=== PATIENT | female | born 1975 | race American Indian/Alaskan Native ===

== ENCOUNTER 2018-01-19 00:09 | Emergency (ER) | payer MEDICAID, SELFPAY ==
[2018-01-19 00:10] VITALS: PULSE 133; RESP 6; O2SAT 91
[2018-01-19 00:11] VITALS: BP 132/103; PULSE 97; RESP 21; O2SAT 100
[2018-01-19] MEDS: NALOXONE 1 MG/ML SYRINGE IV (00:15)
--- NOTE | 2018-01-19 00:15 | PC.NURSE ---
pt was visiting spouse in ED, family member called for help, pt was being helped to the ground, witness reports fainted, unresponsive to painful stimuli, MD present, initiated bag assisted ventilation, narcan nasal 2mg given at time of triage, pt regained resp effort after <2min, placed on seat nailer, additional 0.5mg iv narcan given per md order, family at bedside, reports pt snorted oxy 30 milligram, unsure of time
--- NOTE | 2018-01-19 00:22 | ED_ITS ---
HPI - Overdose General Chief Complaint: Toxicology Problem Stated Complaint: Overdose Time Seen by Provider: 01/19/18 00:16 Source: family History of Present Illness HPI Narrative: Patient in the emergency department with her for opiate overdose. The she passed out in the chair she did strike her head is all on the floor. History of opiate abuse. complaint: accidental overdose Related Data Previous Rx's Medication Instructions Recorded ibuprofen 800 mg PO TID PRN #20 tab 01/19/18 Review of Systems Review of Systems Unable to obtain [facility] Medical History Opiate abuse, continuous (Acute) Exam Initial Vital Signs Initial Vital Signs: Vital Signs Pulse Rate 97 H 01/19/18 00:11 Respiratory Rate 21 01/19/18 00:11 Blood Pressure 132/103 H 01/19/18 00:11 Pulse Oximetry 100 01/19/18 00:11 Const General: acute distress and lethargic HENMT Head: normal to inspection, normocephalic and abrasion Eyes Pupils: pinpoint Neck Neck: normal visual inspection Chest Chest: normal inspection of the chest and normal palpation of entire chest wall Resp Effort & Inspection: decreased respiratory effort Auscultation: clear to auscultation bilaterally, no crackles and no egophony Cardio Rate: regular rate Rhythm: regular rhythm Heart Sounds: S1 normal and S2 normal GI Inspection: normal to inspection Palpation: soft and No tender Skin General: No erythema and No fluctuance Other: No track canales Neuro General: moves all extremities Course Orders Ordered: ED Orders 01/19/18 EKG-12 Lead Routine 01/19/18 00:10 Acetaminophen Stat Complete Blood Count AUTO DIFF Stat Comprehensive Metabolic Panel Stat Ethanol (ETOH) Stat Hepatic (Liver) Panel Stat Test Serum,Qual Stat Salicylate Stat 01/19/18 00:26 CT head/brain wo con Stat Discontinued Medications Sodium Chloride (Normal Saline 0.9%) 1,000 mls @ 150 mls/hr IV CONT JANA Last Admin: 01/19/18 00:28 Dose: 150 mls/hr Naloxone HCl (Narcan) 1 mg IV PRN PRN PRN Reason: Opiate Reversal Last Admin: 01/19/18 00:15 Dose: 0.5 mg Ondansetron HCl (Zofran) 4 mg IV NOW ONE Stop: 01/19/18 00:17 Vital Signs - 8 hr 01/19/18 00:11 01/19/18 02:38 Temperature 98.0 F Pulse Rate 97 H 72 Respiratory Rate 21 18 Blood Pressure 132/103 H 141/91 H Pulse Oximetry 100 100 MDM - Overdose Lab Data Attestation: I reviewed the patient's lab results. Result diagrams: 01/19/18 00:10 01/19/18 00:10 Lab Results 01/19/18 01/19/18 01/19/18 Range/Units 00:10 00:10 00:10 WBC 12.0 H (4.5-11.0) X10^3/uL RBC 4.35 (4.0-5.2) X10^6/uL Hgb 7.2 L (12.0-16.0) g/dL Hct 25.0 L (36-46) % MCV 57.5 L (80-100) fL MCH 16.6 L (26-34) PG MCHC 28.9 L (30-36) % RDW 19.2 H (11.6-14.8) % Plt Count 519 H (150-400) X10^3/uL Neut % (Auto) 73.9 (50-75) % Lymph % (Auto) 21.8 L (25-40) % [place] % (Auto) 3.7 (3-14) % Eos % (Auto) 0.1 L (2-4) % Baso % (Auto) 0.5 (0-2) % Neut # (Auto) 8900 H (6710-4648) /uL RBC Morphology Not Reportable Hypochromasia 2+ H Poikilocytosis 1+ H Anisocytosis 2+ H Microcytosis 2+ H Ovalocytes 2+ H Sodium 145 (137-145) mmol/L Potassium 3.8 (3.4-5.1) mmol/L Chloride 104 (98-107) mmol/L Carbon Dioxide 27 (22-32) mmol/L BUN 8 (7-17) mg/dL Creatinine 0.70 (0.52-1.04) mg/dL Estimated GFR > 60.0 (>60) mL/min BUN/Creatinine Ratio 11.4 (6-22) Glucose 172 H (70-100) mg/dL Calcium 8.5 (8.4-10.2) mg/dL Total Bilirubin 0.4 (0.2-1.3) mg/dL Conjugated Bilirubin 0.0 (0.0-0.3) md/dL Unconjugated Bilirubin 0.1 (0.0-1.1) mg/dL AST 30 (14-36) IU/L ALT 18 (9-52) IU/L Alkaline Phosphatase 64 (38-126) U/L Total Protein 8.2 (6.3-8.2) g/dL Albumin 4.8 (3.5-5.0) g/dL Globulin 3.4 (1.7-4.1) g/dL Albumin/Globulin Ratio 1.4 (1.0-2.8) Serum , Qual Negative (Negative) Salicylates < 1.0 (<20) mg/dL Acetaminophen < 10 L (10-30) ug/mL Ethyl Alcohol < 10 mg/dL Imaging Data CT scan - head: Radiologist's impression: salesforce developer report: No acute intracranial process identified. ECG Data Attestation: I personally reviewed and interpreted this ECG as follows: Prior ECG tracings: not available for review Interpretation: Normal sinus rhythm rate 92 IN interval 140 to QRS 79 QTC 441 no priors to compare no acute ST changes MDM Narrative Medical decision making narrative: The patient initially given 0.2 mg nasally and 1 mg IV. She became awake and alert. She is monitored for 2 hr. Both she and her now admit to snorting oxycodone. They think it may be laced with fentanyl. She is going into treatment tomorrow. Discharge Plan Departure Patient Disposition: Home Clinical Impression: Opioid overdose Discharge Date/Time: 01/19/18 02:41 Interventions: ED Discharge Assessment Last Done: 01/19/18 02:38 Instructions: DI for Opioid Addiction, DI for Prescription Opioid Use Activity Restrictions/Additional Instructions: *You have been diagnosed with overdose *What to do: Stop using drugs *Continue to take medications as directed *Follow up with your primary care provider in 2-3 days *Return to ER if you should have any new, worsening or concerning symptoms Prescriptions: New ibuprofen 800 mg tablet 800 mg PO TID PRN (Reason: pain) Qty: 20 RF: 0
--- NOTE | 2018-01-19 00:26 | DI.CT.S_ITS ---
PROCEDURE: CT HEAD/BRAIN WO CON INDICATIONS: hit head OD TECHNIQUE: Noncontrast 4.5 mm thick angled axial sections acquired from the foramen magnum to the vertex, with coronal and sagittal reformats. For radiation dose reduction, the following was used: automated exposure control, adjustment of mA and/or kV according to patient size. COMPARISON: None. FINDINGS: Image quality: Excellent. CSF spaces: Basal cisterns are patent. No extra-axial fluid collections. Ventricles are normal in size and shape. Brain: No midline shift. No intracranial masses or hemorrhage. Keyes-white matter interface is normal. Skull and face: Calvarium and visualized facial bones are intact, without suspicious lesions. Left frontal scalp hematoma/swelling. Sinuses: Visualized sinuses and mastoids are clear. IMPRESSION: Left frontal scalp swelling. No acute intracranial process. Dictated by: Abel Daugherty M.D. on 01/19/2018 at 7:03 Approved by: Abel Daugherty M.D. on 01/19/2018 at 7:05
[2018-01-19] MEDS: SODIUM CHLORIDE 0.9% 1,000 ML 150 ML IV (00:28)
--- NOTE | 2018-01-19 00:32 | PC.NURSE ---
Family member asking for ice pack for pt's head. Lump noted to left forehead. Dr Torres notified, CT head ordered.
[2018-01-19 00:34] LABS: Acetaminophen < 10 ug/mL (10-30); Alanine Aminotransferase 18 IU/L (9-52); Albumin 4.8 g/dL (3.5-5.0); Albumin Globulin Ratio 1.4 (1.0-2.8); Alkaline Phosphatase 64 U/L (38-126); Aspartate Aminotransferase 30 IU/L (14-36); BUN Creatinine Ratio 11.4 (6-22); Basophils Percent Auto 0.5 % (0-2); Bilirubin Total 0.4 mg/dL (0.2-1.3); Bilirubin Unconjugated 0.1 mg/dL (0.0-1.1); Blood Urea Nitrogen 8 mg/dL (7-17); Calcium 8.5 mg/dL (8.4-10.2); Carbon Dioxide 27 mmol/L (22-32); Chloride 104 mmol/L (98-107); Eosinophils Percent Auto 0.1 % (2-4); Estimated Glomerular Filt Rate > 60.0 mL/min (>60); Ethanol (ETOH) < 10 mg/dL; Globulin 3.4 g/dL (1.7-4.1); Glucose 172 mg/dL (70-100); HEMOLYSIS < 15 (0-50); Hemoglobin 7.2 g/dL (12.0-16.0); Lymphocytes Percent Auto 21.8 % (25-40); Mean Corpuscular HGB Conc 28.9 % (30-36); Mean Corpuscular Hemoglobin 16.6 PG (26-34); Mean Corpuscular Volume 57.5 fL (80-100); Monocytes Percent Auto 3.7 % (3-14); Neutrophils Absolute Auto 8900 /uL (3000-5900); Neutrophils Percent Auto 73.9 % (50-75); Platelet Count 519 X10^3/uL (150-400); Potassium 3.8 mmol/L (3.4-5.1); Red Blood Cell Count 4.35 X10^6/uL (4.0-5.2); Red Cell Distribution Width 19.2 % (11.6-14.8); Sodium 145 mmol/L (137-145); Total Protein 8.2 g/dL (6.3-8.2)
[2018-01-19 00:37] LABS: Add Manual Diff / Slide Review SLIDE REVIEW; Salicylate < 1.0 mg/dL (<20)
[2018-01-19 00:42] LABS: Pregnancy Test Serum,Qual Negative (Negative)
[2018-01-19 01:04] LABS: Anisocytosis 2+; Hypochromasia 2+; Microcytosis 2+; Ovalocytes 2+; Poikilocytosis 1+
[2018-01-19 02:38] VITALS: BP 141/91; PULSE 72; RESP 18; TEMP 36.7; O2SAT 100
--- NOTE | 2018-01-24 19:36 | PC.NURSE ---
IV stop time 7800
== END 2018-01-19 02:41 | disposition home or self-care (01) ==
PROVIDERS: Emergency Provider Emergency Medicine
DX: T40.601A Poisoning by unspecified narcotics, accidental (unintentional), initial encounter (principal)
CPT/HCPCS: 36415; 70450; 80053; 80076; 80320; 80329; 84703; 85025; 93005; 96361; 96374; 99282; 99291; G0480; J2310

== ENCOUNTER 2019-07-28 02:18 | Emergency (ER) | payer MEDICAID, SELFPAY ==
[2019-07-28] VITALS (8 sets, daily range): BP systolic 131–166; BP diastolic 66–89; PULSE 74–99; RESP 14–24; TEMP 36.1; O2SAT 100; BMI 26.6
--- NOTE | 2019-07-28 02:29 | ED.OVERDOSE ---
HPI - Overdose General Chief Complaint: Toxicology Problem Stated Complaint: Overdose Time Seen by Provider: 07/28/19 02:24 Source: patient and EMS Mode of arrival: EMS Limitations: no limitations History of Present Illness HPI Narrative: This is a 43-year-old female brought in for overdose. Per EMS patient had an overdose along with her spouse both within their home on Percocet. It is unclear exact Abby with a took the Percocet or how much either individual take. Neither is very forthcoming. When asked specifically if this was a actual prescription or possibly off the street they are also not forthcoming. Per EMS they were told that the individuals would take 1 tablet wait 20 minutes, did notice any change that would take an additional tablet with the has been taking 1 tablet and the patient taking 1/2 tablet on each case. The patient states that it was dark when they started. That they did receive Narcan, she received 20 mg from Law enforcement intranasally about 20 minutes prior to arrival. Patient has been awake she is a little sleepy but responds to any verbal stimuli. She denies any pain, she does feel cold, she denies any nausea vomiting, no chest pain or shortness of breath and denies any other symptoms. Patient denies any intent to harm herself or others and states that this was recreational. She denies any other medical issues. Denies any regular medications. Denies any prior surgeries or allergies. She does smoke tobacco, occasional alcohol. She denies any other ingestion today and denies any alcohol or other illicit substances. Related Data Previous Rx's Medication Instructions Recorded ibuprofen 800 mg PO TID PRN #20 tab 01/19/18 Allergies Allergy/AdvReac Type Severity Reaction Status Date / Time No Known Drug Allergies Allergy Verified 07/28/19 02:41 Review of Systems Review of Systems ROS Unobtainable: All systems reviewed & are unremarkable except as noted in HPI and below Patient History Medical History Opiate abuse, continuous (Acute) Social History (Updated 07/28/19 @ 02:32 by Merlyn Randolph DO) Smoking Status: Current every day smoker Substance Use Type: painkillers Exam Narrative Exam Narrative: GEN: well nourished, well appearing thin female, alert and oriented x 3, patient appears to be in mild distress. Patient is mildly shaky. HEENT: Atraumatic, pupils are equal round reactive to light, extraocular movements are intact, nares are clear. throat is clear without any exudates, erythema, tonsillar enlargement or uvular deviation HEART: Regular rate and rhythm without murmur, clicks, rubs. LUNGS:Lungs clear to auscultation, no wheezes, rales, crackles, chest moves symmetrically ABD:bowel sounds normal, soft, non-tender, no guarding, rebound, rigidity, no masses noted, no hepatosplenomegaly :No CVA tenderness. MSCL: Non-tender, no muscle atrophy, muscles strength 5/5 upper and lower extremities, full range of motion NEURO:CN 2-12 intact, sensation normal. SKIN: No rash, erythema or other skin changes. Initial Vital Signs Initial Vital Signs: Vital Signs Pulse Rate 84 07/28/19 02:20 Respiratory Rate 14 07/28/19 02:20 Blood Pressure 153/82 H 07/28/19 02:20 Pulse Oximetry 100 07/28/19 02:20 Scores GCS Wood coma scale eye opening: Spontaneous Vonda coma scale verbal response: Orientated Vonda coma scale motor response: Obey commands Wood coma scale total score: 15 Course Orders Ordered: ED Orders 07/28/19 EKG-12 Lead Stat 07/28/19 02:22 Acetaminophen Stat Complete Blood Count AUTO DIFF Stat Comprehensive Metabolic Panel Stat Ethanol (ETOH) Stat Hepatic (Liver) Panel Stat Test Serum,Qual Stat Salicylate Stat 07/28/19 03:30 Urine Drug Screen, Rapid Stat Discontinued Medications Sodium Chloride (Normal Saline 0.9%) 1,000 mls @ 1,000 mls/hr IV BOLUS ONE Stop: 07/28/19 03:24 Last Infusion: 07/28/19 04:27 Dose: 0 mls/hr Documented by: Admin: 07/28/19 02:40 Dose: 1,000 mls/hr Documented by: CTRNESTOR Ondansetron HCl (Zofran) 4 mg IV NOW ONE Stop: 07/28/19 02:26 Last Admin: 07/28/19 02:47 Dose: 4 mg Documented by: CTRNESTOR Vital Signs Vital signs: Vital Signs - 8 hr 07/28/19 02:20 07/28/19 02:41 07/28/19 02:47 Temperature 97.0 F L Pulse Rate 84 99 H 77 Respiratory Rate 14 14 24 Blood Pressure 146/89 H Blood Pressure [Left Arm] 153/82 H 149/79 H Pulse Oximetry 100 100 100 07/28/19 03:04 07/28/19 03:20 07/28/19 03:38 Temperature Pulse Rate 79 81 87 Respiratory Rate 17 18 18 Blood Pressure Blood Pressure [Left Arm] 148/87 H 148/87 H 166/83 H Pulse Oximetry 100 100 100 07/28/19 04:28 07/28/19 05:49 Temperature Pulse Rate 84 74 Respiratory Rate 18 18 Blood Pressure Blood Pressure [Left Arm] 161/79 H 131/66 Pulse Oximetry 100 100 MDM - Overdose Lab Data Attestation: I reviewed the patient's lab results. Result diagrams: 07/28/19 02:22 07/28/19 02:22 Labs: Lab Results 07/28/19 07/28/19 07/28/19 Range/Units 02:22 02:22 02:22 WBC 8.1 (4.5-11.0) X10^3/uL RBC 4.59 (4.0-5.2) X10^6/uL Hgb 7.9 L (12.0-16.0) g/dL Hct 26.6 L (36-46) % MCV 57.9 L (80-100) fL MCH 17.1 L (26-34) PG MCHC 29.6 L (30-36) % RDW 17.9 H (11.6-14.8) % Plt Count 457 H (150-400) X10^3/uL Neut % (Auto) 74.9 (50-75) % Lymph % (Auto) 18.6 L (25-40) % Mineral % (Auto) 5.0 (3-14) % Eos % (Auto) 0.8 L (2-4) % Baso % (Auto) 0.7 (0-2) % Neut # (Auto) 6100 (7709-5722) /uL Lymph # (Auto) 1500 (4839-8349) /uL Mineral # (Auto) 400 (0-900) /uL Eos # (Auto) 100 (0-450) /uL Baso # (Auto) 100 (0-100) /uL RBC Morphology See below Hypochromasia 1+ H Anisocytosis 2+ H Microcytosis 3+ H Ovalocytes 1+ H Schistocytes 1+ H Sodium 139 (137-145) mmol/L Potassium 3.5 (3.4-5.1) mmol/L Chloride 106 (98-107) mmol/L Carbon Dioxide 25 (22-32) mmol/L BUN 10 (7-17) mg/dL Creatinine 0.75 (0.52-1.04) mg/dL Estimated GFR > 60.0 (>60) mL/min BUN/Creatinine Ratio 13.3 (6-22) Glucose 133 H (70-100) mg/dL Calcium 8.8 (8.4-10.2) mg/dL Total Bilirubin 0.2 (0.2-1.3) mg/dL Conjugated Bilirubin 0.0 (0.0-0.3) md/dL Unconjugated Bilirubin 0.2 (0.0-1.1) mg/dL AST 33 (14-36) IU/L ALT 20 (<35) IU/L Alkaline Phosphatase 83 (38-126) U/L Total Protein 7.8 (6.3-8.2) g/dL Albumin 4.6 (3.5-5.0) g/dL Globulin 3.2 (1.7-4.1) g/dL Albumin/Globulin Ratio 1.4 (1.0-2.8) Serum , Qual Negative (Negative) Salicylates < 1.0 (<20) mg/dL U Opiates 300ng/mL cut (Negative) Ur Oxycodone Screen (Negative) Urine Methadone Screen (Negative) Acetaminophen < 10 L (10-30) ug/mL Ur Barbiturates Screen (Negative) U Tricyclic Antidepress (Negative) Ur Phencyclidine Scrn (Negative) Ur Amphetamines Screen (Negative) U Methamphetamines Scrn (Negative) Ur MDMA Scrn (Ecstasy) (Negative) U Benzodiazepines Scrn (Negative) Urine Cocaine Screen (Negative) U Marijuana (THC) Screen (Negative) Ethyl Alcohol < 10 ( - 10) mg/dL 07/28/19 Range/Units 03:30 WBC (4.5-11.0) X10^3/uL RBC (4.0-5.2) X10^6/uL Hgb (12.0-16.0) g/dL Hct (36-46) % MCV (80-100) fL MCH (26-34) PG MCHC (30-36) % RDW (11.6-14.8) % Plt Count (150-400) X10^3/uL Neut % (Auto) (50-75) % Lymph % (Auto) (25-40) % Mineral % (Auto) (3-14) % Eos % (Auto) (2-4) % Baso % (Auto) (0-2) % Neut # (Auto) (9716-7047) /uL Lymph # (Auto) (3297-2273) /uL Mineral # (Auto) (0-900) /uL Eos # (Auto) (0-450) /uL Baso # (Auto) (0-100) /uL RBC Morphology Hypochromasia Anisocytosis Microcytosis Ovalocytes Schistocytes Sodium (137-145) mmol/L Potassium (3.4-5.1) mmol/L Chloride (98-107) mmol/L Carbon Dioxide (22-32) mmol/L BUN (7-17) mg/dL Creatinine (0.52-1.04) mg/dL Estimated GFR (>60) mL/min BUN/Creatinine Ratio (6-22) Glucose (70-100) mg/dL Calcium (8.4-10.2) mg/dL Total Bilirubin (0.2-1.3) mg/dL Conjugated Bilirubin (0.0-0.3) md/dL Unconjugated Bilirubin (0.0-1.1) mg/dL AST (14-36) IU/L ALT (<35) IU/L Alkaline Phosphatase (38-126) U/L Total Protein (6.3-8.2) g/dL Albumin (3.5-5.0) g/dL Globulin (1.7-4.1) g/dL Albumin/Globulin Ratio (1.0-2.8) Serum , Qual (Negative) Salicylates (<20) mg/dL U Opiates 300ng/mL cut Positive H (Negative) Ur Oxycodone Screen Negative (Negative) Urine Methadone Screen Negative (Negative) Acetaminophen (10-30) ug/mL Ur Barbiturates Screen Negative (Negative) U Tricyclic Antidepress Negative (Negative) Ur Phencyclidine Scrn Negative (Negative) Ur Amphetamines Screen Negative (Negative) U Methamphetamines Scrn Negative (Negative) Ur MDMA Scrn (Ecstasy) Negative (Negative) U Benzodiazepines Scrn Negative (Negative) Urine Cocaine Screen Negative (Negative) U Marijuana (THC) Screen Negative (Negative) Ethyl Alcohol ( - 10) mg/dL ECG Data Attestation: I personally reviewed and interpreted this ECG as follows: Prior ECG tracings: available for review Interpretation: Sinus rhythm rate 89 P are 136 QRS 92 QTC of 430. No ST elevation or depression appreciated. Patient has similar EKG from 01/19/2018 with no new EKG changes noted. MDM Narrative Medical decision making narrative: Patient has anemia but her hemoglobin appears stable from 2018. Appears to be microcytic. Platelets are elevated with a normal white count. And renal function with a glucose of 133, LFTs are negative with a negative serum . Patient is positive for opiates, negative for Tylenol, salicylates and alcohol. Discussed with patient her hemoglobin, she was able to ambulate in the department has been alert without any decrease in her mental status. Plan for DC home. She was offered options for addiction treatment. Discharge Plan Departure Patient Disposition: Home Clinical Impression: Overdose Discharge Date/Time: 07/28/19 06:30 Instructions: DI for Drug Overdose in Adults Activity Restrictions/Additional Instructions: I would recommend that you follow-up with a counselor or opiate addiction treatment facility. Your hemoglobin is low, this appears chronic compared to your labs in 2018 but you would likely benefit from a close follow-up and recheck. Return to the ER for fevers, new shortness of breath, chest pain, passing out, persistent vomiting, black or bloody stools or other new or concerning symptoms. Prescriptions: No Action ibuprofen 800 mg tablet 800 mg PO TID PRN (Reason: pain) Qty: 20 RF: 0 Referrals: [facility] [Outside]
[2019-07-28 02:38] LABS: Add Manual Diff / Slide Review NO; Basophils Absolute Auto 100 /uL (0-100); Basophils Percent Auto 0.7 % (0-2); Eosinophils Absolute Auto 100 /uL (0-450); Eosinophils Percent Auto 0.8 % (2-4); Hematocrit 26.6 % (36-46); Hemoglobin 7.9 g/dL (12.0-16.0); Lymphocytes Absolute Auto 1500 /uL (1100-4500); Lymphocytes Percent Auto 18.6 % (25-40); Mean Corpuscular HGB Conc 29.6 % (30-36); Mean Corpuscular Hemoglobin 17.1 PG (26-34); Mean Corpuscular Volume 57.9 fL (80-100); Monocytes Absolute Auto 400 /uL (0-900); Neutrophils Absolute Auto 6100 /uL (1500-7000); Neutrophils Percent Auto 74.9 % (50-75); Platelet Count 457 X10^3/uL (150-400); Red Blood Cell Count 4.59 X10^6/uL (4.0-5.2); Red Cell Distribution Width 17.9 % (11.6-14.8); White Blood Cell Count 8.1 X10^3/uL (4.5-11.0)
[2019-07-28] MEDS: SODIUM CHLORIDE 0.9% 1,000 ML 1000 ML IV (02:40)
[2019-07-28 02:44] LABS: Acetaminophen < 10 ug/mL (10-30); Alanine Aminotransferase 20 IU/L (<35); Albumin 4.6 g/dL (3.5-5.0); Albumin Globulin Ratio 1.4 (1.0-2.8); Alkaline Phosphatase 83 U/L (38-126); Aspartate Aminotransferase 33 IU/L (14-36); BUN Creatinine Ratio 13.3 (6-22); Bilirubin Total 0.2 mg/dL (0.2-1.3); Bilirubin Unconjugated 0.2 mg/dL (0.0-1.1); Blood Urea Nitrogen 10 mg/dL (7-17); Calcium 8.8 mg/dL (8.4-10.2); Carbon Dioxide 25 mmol/L (22-32); Chloride 106 mmol/L (98-107); Estimated Glomerular Filt Rate > 60.0 mL/min (>60); Ethanol (ETOH) < 10 mg/dL; Globulin 3.2 g/dL (1.7-4.1); Glucose 133 mg/dL (70-100); HEMOLYSIS < 15 (0-50); Potassium 3.5 mmol/L (3.4-5.1); Salicylate < 1.0 mg/dL (<20); Sodium 139 mmol/L (137-145); Total Protein 7.8 g/dL (6.3-8.2)
[2019-07-28] MEDS: ONDANSETRON 4 MG/2 ML INJ IV (02:47)
[2019-07-28 02:55] LABS: Pregnancy Test Serum,Qual Negative (Negative)
[2019-07-28 03:47] LABS: Anisocytosis 2+; Hypochromasia 1+; Microcytosis 3+
[2019-07-28 03:48] LABS: Ovalocytes 1+; Schistocytes 1+
[2019-07-28 03:53] LABS: UR Morphine/Opiate cutoff 300 Positive (Negative); Ur Creatinine 20 (Normal); Ur Specific Gravity 1.025 (Normal); Urine Cocaine Negative (Negative); Urine Tetrahydrocannabinol Negative (Negative); Urine pH 5 (Normal)
[2019-07-28 03:54] LABS: Urine Amphetamines Negative (Negative); Urine Barbiturates Negative (Negative); Urine Benzodiazepines Negative (Negative); Urine MDMA Negative (Negative); Urine Methadone Negative (Negative); Urine Methamphetamines Negative (Negative); Urine Oxycodone Negative (Negative); Urine Phencyclidine Negative (Negative); Urine Tricyclic Antidepressant Negative (Negative)
== END 2019-07-28 06:30 | disposition home or self-care (01) ==
PROVIDERS: Emergency Provider Emergency Medicine
DX: T40.2X1A Poisoning by other opioids, accidental (unintentional), initial encounter (principal); D64.9 Anemia, unspecified
CPT/HCPCS: 36415; 80053; 80076; 80305; 80320; 80329; 84703; 85025; 93005; 96361; 96374; 99284; 99291; 99292; G0480; J2405

== ENCOUNTER → 2019-12-10 15:57 | Outpatient (CLI) | payer MEDICAID, SELFPAY ==
--- NOTE | 2019-12-10 | DI.RAD.S_ITS ---
PROCEDURE: XR KUB INDICATIONS: GENERALIZED ABDOMINAL PAIN TECHNIQUE: One view of the abdomen acquired. COMPARISON: None. FINDINGS: Surgical changes and devices: None. Bowel: Bowel gas pattern is normal. Soft tissues: No suspicious abdominal calcifications. Visualized solid organ contours appear normal in size. Bones: No suspicious bony lesions. IMPRESSION: No source for abdominal pain. If pain persists, consider CT. Dictated by: Rodolfo AYALA Interpreted: Lewis Ingram MD on 12/10/2019 at 16:21 Approved by: Lewis Ingram M.D. on 12/10/2019 at 16:54
== END ==
PROVIDERS: PCP Physician Assistant; Referring Provider Physician Assistant; Visit Provider Physician Assistant
DX: R10.84 Generalized abdominal pain (principal)
CPT/HCPCS: 74018

== ENCOUNTER 2019-12-30 17:44 | Emergency (ER) | payer MEDICAID, SELFPAY ==
[2019-12-30 17:44] VITALS: BP 121/74; PULSE 131; RESP 18; O2SAT 96
--- NOTE | 2019-12-30 17:48 | DI.CT.S_ITS ---
PROCEDURE: CT CHEST ABD PEL W CON INDICATIONS: Trauma TECHNIQUE: After the administration of intravenous contrast, 5 mm thick sections acquired from the lung apices to the symphysis. 2.5 mm thick coronal and sagittal reformats were acquired. Additional 7 mm thick coronal maximum intensity projection (MIP) reformats acquired through the lungs. Optional 10-minute delayed imaging may be performed from the kidneys to the bladder. For radiation dose reduction, the following was used: automated exposure control, adjustment of mA and/or kV according to patient size. COMPARISON: [facility], CR, XR CHEST 1 VIEW, 12/23/2019, 16:31. [facility], CT, CT ABDOMEN PELVIS WITH CONTRAST, 12/13/2019, 14:11. FINDINGS: Image quality: Excellent. CHEST: Lungs: No pulmonary contusions or lacerations. Mild opacity at the left lung base, likely compressive atelectasis. No pneumothorax. Beam hardening artifact at the left apex. Large left pleural effusion, new. Numerous small pleural and fissural nodules. Trace effusion on the right. Airways are clear. Mediastinum: Sided port with the catheter tip in the upper 3rd of the SVC. No mediastinal hematomas. Heart size is normal. No pericardial effusion. Thoracic aorta and pulmonary arteries demonstrate normal size and enhancement. No obvious central pulmonary embolism. No mediastinal or hilar adenopathy. Trace fluid in the distal esophagus. No hiatal hernia. Chest wall: Left anterior lateral 5th rib fracture with mild displacement, (). No subcutaneous emphysema. No axillary or supraclavicular adenopathy. Multinodular goiter. ABDOMEN: Solid organs: Liver is enlarged, without lacerations. Large heterogeneous lesion infiltrating the left lobe of the liver and medial right lobe of the liver consistent with metastatic disease, overall similar in size compared to 12/13/2019. Small hypodensity in the right dome, unchanged. Gallbladder demonstrates cholelithiasis. . Biliary system is non-dilated. Pancreas enhances normally, without transection. Spleen is borderline enlarged. No laceration seen. Small left adrenal nodule. No hydronephrosis or lacerations. Right mid kidney complicated cyst measuring 2.1 cm, (). Small nonobstructing right kidney stones. Peritoneum and bowel: Large volume of ascites, slightly decreased. Recent paracenteses. Proximal jejunum is mildly prominent measuring up to 2.7 cm in diameter. The small bowel wall is thickened. No bowel obstruction. Nodes and vessels: Extensive peritoneal carcinomatosis/omental caking, appears increased. Aorta and inferior vena cava are normal in size and enhancement. Miscellaneous: No ventral hernias. PELVIS: Genitourinary: Bladder wall thickness is normal. Miscellaneous: No inguinal hernias or adenopathy. Bones: Pelvic ring and hip joints appear intact. No vertebral compression fractures. Left wrist ORIF. Left hip bone island. IMPRESSION: 1. Acute left anterior lateral 5th rib fracture. This is not seen on the CXR 12/23/2019. 2. Large left pleural effusion, substantially increased compared to 12/23/2019. 3. Small pleural nodules consistent with metastatic disease. 4. Large hepatic metastases are similar in size. 5. Extensive peritoneal carcinomatosis which appears increased. 6. Large volume of ascites is stable to decreased. Dictated by: Gonsalo Lyon M.D. on 12/30/2019 at 17:30 Approved by: Gonsalo Lyon M.D. on 12/30/2019 at 17:52
--- NOTE | 2019-12-30 17:48 | DI.CT.S_ITS ---
PROCEDURE: CT FACIAL BONES WO CON INDICATIONS: Trauma TECHNIQUE: Noncontrast 2.5 mm thick axial images acquired from the mandible through the frontal sinuses, with coronal and sagittal reformatting. For radiation dose reduction, the following was used: automated exposure control, adjustment of mA and/or kV according to patient size. COMPARISON: None. FINDINGS: Image quality: Excellent. Bones and teeth: Orbital matamoros are intact. Sinus matamoros show no fracture or deformity. Nasal bones and septum are intact. Visualized portions of the mandible demonstrate no fractures or subluxation. Zygomatic arches are intact. Pterygoid plates are intact. Visualized portions of the skull base and auditory canals are intact. Right lateral mass fracture of C1. Right lateral mass fracture of C2 extending into the right vertebral foramen. Sinuses: Paranasal sinuses are aerated, without fluid levels, mucosal thickening, or mucoceles. Mastoid air cells are aerated. Soft tissues: No edema, masses, or fluid collections. No enlarged lymph nodes. Left cheek soft tissue laceration with subcutaneous gas. No radiopaque foreign body. Vascular: Visualized vascular structures appear normal in the absence of contrast. Bony vascular foramina and canals are intact. IMPRESSION: 1. Right lateral mass fractures of C1 and C2. 2. Left cheek laceration. 3. No evidence of displaced facial bone fracture or mandibular fracture. Dictated by: Ishmael Lr M.D. on 12/30/2019 at 18:41 Approved by: Ishmael Lr M.D. on 12/30/2019 at 18:45
--- NOTE | 2019-12-30 17:49 | DI.CT.S_ITS ---
PROCEDURE: CT HEAD/BRAIN WO CON INDICATIONS: Trauma TECHNIQUE: Noncontrast 4.5 mm thick angled axial sections acquired from the foramen magnum to the vertex, with coronal and sagittal reformats. For radiation dose reduction, the following was used: automated exposure control, adjustment of mA and/or kV according to patient size. COMPARISON: [facility], CT, CT CERVICAL SPINE WO CON, 12/30/2019, 17:48. [facility], CT, CT HEAD/BRAIN WO CON, 01/19/2018, 0:38. FINDINGS: Image quality: Excellent. CSF spaces: Basal cisterns are patent. No extra-axial fluid collections. Ventricles are normal in size and shape. Brain: No midline shift. No intracranial masses or hemorrhage. Keyes-white matter interface is normal. Skull and face: Calvarium and visualized facial bones are intact, without suspicious lesions. Laceration, left cheek, with subcutaneous gas present. There is a fracture of the right lateral mass of C1. Please refer to separate report. Sinuses: Visualized sinuses and mastoids are clear. IMPRESSION: 1. Right lateral mass of C1 fracture. Please refer to a separate CT cervical spine report. 2. Left cheek laceration. 3. Negative for acute stroke, hemorrhage, or mass. 4. No evidence of significant intracranial sequelae of acute trauma. Comment: Findings were discussed with Dr. Tatum the time of study dictation on 12/30/19 at 1826 hours. Dictated by: Ishmael Lr M.D. on 12/30/2019 at 18:24 Approved by: Ishmael Lr M.D. on 12/30/2019 at 18:29
--- NOTE | 2019-12-30 17:49 | DI.CT.S_ITS ---
PROCEDURE: CT CERVICAL SPINE WO CON INDICATIONS: Trauma TECHNIQUE: Noncontrast 3 mm thick sections acquired from the skull base to the T4 level. Sagittal and coronal reformats were then constructed. For radiation dose reduction, the following was used: automated exposure control, adjustment of mA and/or kV according to patient size. COMPARISON: None. FINDINGS: Image quality: Excellent. Bones: Minimally displaced comminuted right lateral mass fracture of C1. Comminuted right lateral mass fracture of C2 extending into the vertebral artery foramen. No other cervical fractures or dislocations. Question right posterior lateral 2nd rib fracture versus motion artifact. Soft tissues: Prevertebral soft tissues are normal in thickness. No paravertebral hematomas. No apical pneumothoraces. Large left pleural effusion. 1.6 cm right thyroid nodule. IMPRESSION: 1. Minimally displaced comminuted right lateral mass fracture of C1. 2. Comminuted, mildly displaced right lateral mass fracture of C2 extending into the vertebral artery foramen. 3. Question right posterior lateral 2nd rib fracture. 4. Large left pleural effusion with uncertain etiology in this patient with extensive underlying malignancy in large ascites. Dictated by: Ishmael Lr M.D. on 12/30/2019 at 18:30 Approved by: Ishmael Lr M.D. on 12/30/2019 at 18:37
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
[2019-12-30 18:21] LABS: Add Manual Diff / Slide Review NO; Basophils Absolute Auto 0 /uL (0-100); Basophils Percent Auto 0.3 % (0-2); Eosinophils Absolute Auto 0 /uL (0-450); Eosinophils Percent Auto 0.9 % (2-4); Hematocrit 22.4 % (36-46); Lymphocytes Absolute Auto 400 /uL (1100-4500); Lymphocytes Percent Auto 25.5 % (25-40); Mean Corpuscular HGB Conc 31.4 % (30-36); Mean Corpuscular Hemoglobin 18.9 PG (26-34); Monocytes Absolute Auto 200 /uL (0-900); Monocytes Percent Auto 14.4 % (3-14); Neutrophils Absolute Auto 900 /uL (1500-7000); Neutrophils Percent Auto 58.9 % (50-75); Platelet Count 129 X10^3/uL (150-400); Red Blood Cell Count 3.73 X10^6/uL (4.0-5.2); Red Cell Distribution Width 17.5 % (11.6-14.8)
[2019-12-30] MEDS: TET,DIPH,PERTUSS(ACELL),VAC/PF 0.5 ML SYRINGE IM (18:21)
[2019-12-30] MEDS: CEFAZOLIN 1 GM/50 ML FROZ.PIGGY IV (18:22)
[2019-12-30] MEDS: SODIUM CHLORIDE 0.9% 500 ML 1000 ML IV (18:22)
[2019-12-30 18:30] VITALS: BP 127/63; PULSE 124; RESP 21; O2SAT 96
[2019-12-30 18:31] LABS: White Blood Cell Count 1.6 X10^3/uL (4.5-11.0)
[2019-12-30 18:41] LABS: Alanine Aminotransferase 16 IU/L (<35); Albumin 2.6 g/dL (3.5-5.0); Albumin Globulin Ratio 0.9 (1.0-2.8); Alkaline Phosphatase 203 U/L (38-126); Aspartate Aminotransferase 34 IU/L (14-36); BUN Creatinine Ratio 14.8 (6-22); Bilirubin Total 0.3 mg/dL (0.2-1.3); Blood Urea Nitrogen 18 mg/dL (7-17); Carbon Dioxide 25 mmol/L (22-32); Chloride 101 mmol/L (98-107); Creatine Kinase 82 U/L (30-135); Estimated Glomerular Filt Rate 48.1 mL/min (>60); Globulin 2.8 g/dL (1.7-4.1); Glucose 122 mg/dL (70-100); HEMOLYSIS < 15 (0-50); Lipase 46 U/L (23-300); Potassium 4.1 mmol/L (3.4-5.1); Sodium 131 mmol/L (137-145); Total Protein 5.4 g/dL (6.3-8.2)
[2019-12-30 18:48] LABS: Pregnancy Test Serum,Qual Negative (Negative)
[2019-12-30 18:50] LABS: Anisocytosis 1+; Hypochromasia 2+; Microcytosis 2+; Ovalocytes 1+; Platelet Estimate Decreased on smear; Poikilocytosis 1+
[2019-12-30 18:53] LABS: Troponin I < 0.012 ng/mL (0.01-0.034)
[2019-12-30 18:58] LABS: Ethanol (ETOH) < 10 mg/dL
[2019-12-30 19:10] LABS: INR 1.1 (0.9-1.3); Prothrombin Time 12.4 SECONDS (10.1-12.7)
== END 2019-12-30 19:17 | disposition short-term general hospital (02) ==
PROVIDERS: Emergency Medicine; Emergency Provider Emergency Medicine; PCP Physician Assistant
DX: S06.9X9A Unspecified intracranial injury with loss of consciousness of unspecified duration, initial encounter (principal); S09.93XA Unspecified injury of face, initial encounter; K08.89 Other specified disorders of teeth and supporting structures; R04.0 Epistaxis; M54.2 Cervicalgia; S61.412A Laceration without foreign body of left hand, initial encounter; V49.9XXA Car occupant (driver) (passenger) injured in unspecified traffic accident, initial encounter; Z23 Encounter for immunization
CPT/HCPCS: 70450; 70486; 71260; 72125; 74177; 80053; 80320; 82550; 83690; 84484; 84703; 85025; 85610; 86850; 86900; 86901; 90471; 93005; 96365; 99284; 99291; 90715; G0390; Q9967